=== PATIENT | female | born 1980 | race Hispanic/Latino ===

== ENCOUNTER → 2017-11-25 | Day surgery (SDC) | payer BC ==
[2017-11-23 09:57] LABS: BASOPHILS % 0.5 % (0.0-1.0); EOSINOPHILS # (AUTO) 0.1 (0.0-0.4); EOSINOPHILS % 1.7 % (0.0-6.0); HEMATOCRIT 41.3 % (34.2-44.1); HEMOGLOBIN 14.2 g/dL (12.0-16.0); LYMPHOCYTES # (AUTO) 2.9 (1.0-3.2); LYMPHOCYTES % 37.5 % (18.0-39.1); MEAN CORPUSCULAR HEMOGLOBIN 31.8 pg (28-32); MEAN CORPUSCULAR HGB CONC 34.4 g/dL (31-35); MEAN CORPUSCULAR VOLUME 92.6 fL (81-99); MONOCYTES # (AUTO) 0.7 (0.2-0.8); MONOCYTES % 9.6 % (4.4-11.3); NEUTROPHILS # (AUTO) 3.8 (2.1-6.9); NEUTROPHILS % 49.9 % (38.7-80.0); PLATELET COUNT 270 x10e3/uL (140-360); RED BLOOD COUNT 4.46 x10e6/uL (3.6-5.1); RED CELL DISTRIBUTION WIDTH 11.8 % (11.7-14.4)
[~2017-11-25] MED LIST: ACETAMINOPHEN 1000 MG/100 ML IV ONE; CEFAZOLIN SOD 1 GM VIAL ONE; DEXAMETHASONE SOD PHOS INJ 4 MG/ML VIAL ONE; FENTANYL CITRATE/PF 100MCG/2 ML INJ ONE; KETOROLAC TROMETHAMINE 30 MG/ML VIAL ONE; LIDOCAINE HCL 2% LOCAL INJ 5 ML SDV VIAL INJ ONE; MIDAZOLAM HCL 2 MG/2 ML VIAL ONE; NEXIUM40 MG PO; ONDANSETRON HCL INJ 2 MG/ML VIAL ONE; PROPOFOL IV EMULSION 10 MG/ML 20 ML VIAL ONE; SEVOFLURANE INHAL SOLN 250 ML PEN BTL ONE
--- NOTE | 2017-11-30 14:16 | Operative Report ---
DATE OF PROCEDURE: November 25, 2017 PREOPERATIVE DIAGNOSES 1. Abnormal uterine bleeding. 2. Uterine septum. 3. Recurrent miscarriage. 4. Infertility. POSTOPERATIVE DIAGNOSES 1. Abnormal uterine bleeding. 2. Uterine septum. 3. Recurrent miscarriage. 4. Infertility. 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 PROCEDURES PERFORMED 1. Hysteroscopy. 2. Dilatation and curettage. 3. Resection of uterine septum. ANESTHESIA: General. ESTIMATED BLOOD LOSS: Minimal. COMPLICATIONS: None. FINDINGS: Small anteverted uterus with a hysteroscopic findings of a possible uterine polyp versus polypoid endometrial tissue as well as uterine septum. SPECIMENS: Endometrial curettings and uterine contents. INDICATIONS: The patient is a 37-year-old, 1 para 0-0-1-0, with history of abnormal uterine bleeding, infertility and potential recurrent miscarriage secondary to a uterine septum. PROCEDURE NOTE: Prior to the procedure the risks, benefits, and alternatives were discussed and the patient agreed to proceed. Following anesthesia she was placed in the modified dorsal lithotomy position in [facility]. Prepping and draping was performed in typical sterile fashion and a time-out was done. A weighted speculum was then placed in the vaginal. The cervix was grasped with a single-tooth tenaculum. The cervix was sequentially dilated and hysteroscope was inserted with findings as previously mentioned. The TruClear device was then inserted into the hysteroscope and used to perform an endometrial curettage under direct visualization. A combination of the TruClear device and hysteroscopic scissors were then used to resect the uterine septum. Sharp curettage was then performed until a gritty texture was noted. Endometrial tissue along with the septum and possible polyp were sent to pathology. All instruments were removed from the patient. Tenaculum sites were noted to be hemostatic. The patient was awakened, sent to the recovery room in stable condition. All sponge, lap, needle and instrument counts were correct times 2. Job#: [id number] MICHELLE
== END | disposition home or self-care (01) ==
LOC: OR 10:39
PROVIDERS: ATTEND Obstetrics & Gynecology Obstetrics
DX: Q51.10 Doubling of uterus with doubling of cervix and vagina without obstruction (principal); N97.9 Female infertility, unspecified; N96 Recurrent pregnancy loss; K21.9 Gastro-esophageal reflux disease without esophagitis; Z01.812 Encounter for preprocedural laboratory examination
CPT/HCPCS: 36415; 58558; 58560; 84702; 85025; 88305; J0690; J1100; J1885; J2001; J2250; J2405